=== PATIENT | male | born 1970 | race Caucasian/White ===

== ENCOUNTER → 2019-10-17 07:03 | Outpatient (CLI) | payer OTHER, SELFPAY ==
--- NOTE | 2019-10-17 07:17 | CT_ITS ---
STUDY: CT BRAIN WITHOUT CONTRAST REASON FOR EXAM: Male, 49 years old. History of stroke or hydrocephalus RADIATION DOSAGE (If Supplied By Facility): CTDIvol = ( 44.99 ) mGy, DLP = ( 779.24 ) mGycm TECHNIQUE: Transaxial CT imaging of the brain was performed without administration of intravenous contrast material. Individualized dose optimization techniques were used for this CT. COMPARISON: No relevant priors. FINDINGS: Normal soft tissue structures. There is postoperative change status post left-sided craniectomy. The brain parenchyma has expanded to the inner side of the craniectomy mesh. There is focal encephalomalacia within the left frontal lobe with ex vacuo dilatation of the left frontal horn. There is a right side frontal bore hole. Normal size ventricles and extra-axial spaces for the patient's age. Normal white matter tracts of the cerebral hemispheres. Normal basal ganglia and thalami. Normal brainstem. Normal cerebellum. There is no intracranial hemorrhage. There are no findings of an acute ischemic infarction. Normal visualized paranasal sinuses. There is postoperative change of the left lobe and radiopaque focus in the medial aspect of the left globe or anterior ocular space. CT/Brain/Head without Contrast IMPRESSION: Postoperative change as detailed above, postoperative encephalomalacia status post ischemic or hemorrhagic event or injury left frontal lobe. Status post left-sided craniectomy. No evidence of acute hemorrhage infarct or edema. Comparison study would be helpful if available. There is radiopaque focus in the medial aspect of the left globe or anterior ocular space. Electronically Signed: Brunilda Smith MD at 10:03 EST Tel , Service support ,
== END ==
DX: G91.8 Other hydrocephalus (principal)
CPT/HCPCS: 70450